=== PATIENT | male | born 1975 | race Caucasian/White ===

== ENCOUNTER 2025-04-11 07:56 | Emergency (ER) | payer OTHER, SELFPAY ==
[2025-04-11 08:05] VITALS: BP 160/110; PULSE 87; TEMP 36.6; O2SAT 98; BMI 29.3
--- NOTE | 2025-04-11 08:48 | ED_ITS ---
HPI - URI/Sore Throat General Chief Complaint: Upper Respiratory Infection Stated Complaint: BILATERAL EYE- ITCHY,DRAINING & SWELLING Time Seen by Provider: 04/11/25 08:14 Source: patient Limitations: no limitations History of Present Illness HPI Narrative: The patient is a 50 years old male presenting to the ER with 1 week history of bilateral eye irritation and swelling, patient mentioned that it also associated with a runny nose and congestion with a frontal headache, the patient mentioned that he have runny nose with secretion are clear No fever no chills and his eye irritation is mostly not associate with any blurry vision except that sometime he will have to blink multiple time because he feels like there is secretion on top of the eye, and when he wake up in the morning sometimes it is clear short with secretion Both eyes feel like there is something inside them there is no history of any fall or trauma or any other concerns Related Data Previous Rx's ?Medication ?Instructions ?Recorded cetirizine 10 mg capsule (Zyrtec) 10 mg PO DAILY #10 c aps 04/11/25 erythromycin 5 mg/gram (0.5 %) eye 0.5 inch ophthalmic (eye) Q12H 04/11/25 ointment #3.5 grams fluticasone propionate 50 2 spray intranasal Q12H #11. 1 mL 04/11/25 mcg/actuation nasal spray,suspension (24 Hour Allergy Relief) Allergies Allergy/AdvReac Type Severity Reaction Status Date / Time No Known Drug Allergies Allergy Verified 04/11/25 08:04 Review of Systems ROS Status of ROS 10 or more systems reviewed and unremark able except as noted in history and below PFSH PFSH Social History Little interest or pleasure in doing things: not at all Feeling down, depressed, or hopeless: not at all Exam Narrative Exam Narrative: Nurses notes and vital signs reviewed and patient is not hypoxic. General: Well-appearing and in no apparent distress. Skin: Warm, dry, no pallor noted. No rash. Head: Normocephalic, atraumatic. Neck: Supple, non-tender. Eye: Pupils are equal, the patient have a conjunctival erythema in both eyes with upper and lower eyelid edema in the left side which is mild mostly in the left upper. There is no limitation movement of the eyes. The patient have mild conjunctival erythema in both eyes with normal pupils no hyphema no hypopyon Ears, Nose, Mouth, and Throat: congested nasal mucosa noted no posterior oropharynx erythema, uvula is mid-line Cardiovascular: Regular Rate and Rhythm without murmur, gallop or rub. Respiratory: No accessory muscle use or respiratory distress. Lungs are clear to auscultation, no wheezing, rales or rhonchi Chest Wall: no tenderness Back: No midline thoracic or lumbar vertebral tenderness. No CVA tenderness Musculoskeletal: normal ROM, no calf or popliteal tenderness, no lower extremity edema/swelling GI: Abdomen is soft, non-distended. Normal bowel sounds. No masses appreciated. No tenderness to palpation. No rebound, guarding, or rigidity noted. Neurological: A&O x4. No cranial nerve dysfunction observed. No truncal ataxia. Moves all extremities. Sensation intact. Psychiatric: Cooperative and interactive. Normal mood and affect. Constitutional Vital Signs, click to edit/add: Last Vital Signs Temp 97.9 F 04/11/25 08:05 Pulse 87 04/11/25 08:05 Resp 18 04/11/25 08:05 BP 160/110 H 04/11/25 08:05 Pulse Ox 98 04/11/25 08:05 O2 Del Method Room Air 04/11/25 08:05 Course Vital Signs Vital signs: Vital Signs Temperature 97.9 F 04/11/25 08:05 Pulse Rate 87 04/11/25 08:05 Respiratory Rate 18 04/11/25 08:05 Blood Pressure 160/110 H 04/11/25 08:05 Pulse Oximetry 98 04/11/25 08:05 Oxygen Delivery Method Room Air 04/11/25 08:05 Temperature 97.9 F 04/11/25 08:05 Pulse Rate 87 04/11/25 08:05 Respiratory Rate 18 04/11/25 08:05 Blood Pressure 160/110 H 04/11/25 08:05 Pulse Oximetry 98 04/11/25 08:05 Oxygen Delivery Method Room Air 04/11/25 08:05 MDM - URI/Sore Throat MDM Narrative Medical decision making narrative: The patient presenting with upper respiratory tract infection symptoms and bilateral eye conjunctivitis which mostly could be bacterial on top of viral Right now the patient was covered with erythromycin as well as prednisone 1 dose to help symptomatic treatment Patient will be discharged home with erythromycin as well as Flonase and Zyrtec Instruction to come back to the ER in case of redness hotness or any new symptoms of blurry vision or any pain The patient to follow-up with the primary care within 2 to 3 days and to come back to the ER in case of any worsening of the current symptoms or any new symptoms or concerns Discharge Plan Discharge Chief Complaint: Upper Respiratory Infection Clinical Impression: Upper respiratory infection, Acute conjunctivitis of both eyes Patient Disposition: Home, Self-Care Time of Disposition Decision: 08:53 Condition: Good Prescriptions / Home Meds: New fluticasone propionate [24 Hour Allergy Relief] 50 mcg/actuation spray,suspension 2 spray intranasal Q12H Qty: 11.1 0RF Rx Instructions: administer into each nostril erythromycin 5 mg/gram (0.5 %) ointment 0.5 inch ophthalmic (eye) Q12H Qty: 3.5 0RF Rx Instructions: both eyes for 5days Zyrtec 10 mg capsule 10 mg PO DAILY Qty: 10 0RF Print Language: Latvian Instructions: Upper Respiratory Infection (DC), Conjunctivitis (ED)
[2025-04-11] MEDS: PREDNISONE 20 MG TABLET 40 MG PO (09:01)
[2025-04-11] MEDS: ERYTHROMYCIN OP OINT 0.5% 1 GM TUBE OP (09:01)
== END 2025-04-11 09:13 | disposition home or self-care (01) ==
PROVIDERS: Emergency Provider Emergency Medicine
DX: H10.33 Unspecified acute conjunctivitis, bilateral (principal); J06.9 Acute upper respiratory infection, unspecified
CPT/HCPCS: 99283; J7512